=== PATIENT | male | born 1995 | race Caucasian/White ===

== ENCOUNTER → 2016-12-14 | Outpatient (CLI) | payer OTHER ==
[~2016-12-14] MED LIST: ASTHMA MEDS; CETI10TA84 PO; MULT-506 PO; MUSCLE RELAXER PO; TYLOTC500 PO; ZYRUNK
--- NOTE | 2016-12-14 08:54 | DIAGNOSTIC IMAGING REPORT ---
SPLENIC ULTRASOUND CLINICAL HISTORY: Nucleus is COMPARISON STUDY: No previous studies for comparison. FINDINGS: The spleen measures 12.9 cm in length. No splenic masses are visualized. There are no perisplenic fluid collections. IMPRESSION: 12.9 cm spleen. No splenic masses identified. Electronically signed by: Jimenez Thorpe M.D. 12/14/2016 8:53 AM Dictated Date/Time: 12/14/2016 8:52 AM
== END | disposition home or self-care (01) ==
LOC: C.ULTR 08:24
PROVIDERS: ATTEND Family Medicine
DX: B27.90 Infectious mononucleosis, unspecified without complication (principal)

== ENCOUNTER 2017-01-02 00:25 | Inpatient (IN) | payer OTHER ==
[~2017-01-02] VITALS: Ht 182.9 cm; Wt 83.3 kg
[~2017-01-02 00:25] MED LIST changes: -MULT-506 PO
[2017-01-02] MEDS ORDERED: SODIUM CHLORIDE 0.9% 1000ML 1,000 ML IV STA ×2 (00:39)
[2017-01-02] MEDS ORDERED: MoRPHine SULFATE 4 MG/ML 1 ML CARP\\VIAL IV STA (00:39)
[2017-01-02] MEDS ORDERED: ONDANSETRON INJ 2 MG/ML 2 ML VIAL IV STA (00:39)
[2017-01-02 01:03] LABS: BASO % 0.9 %; BASO ABS # 0.08 K/uL (0-0.2); COMPLETE YES; EOS % 4.1 %; HEMATOCRIT 45.9 % (42-52); IG% 0.2 %; LYMPH % 35.7 %; LYMPH ABS # 3.02 K/uL (1.2-3.4); MEAN CORPUSCULAR HEMOGLOBIN 31.8 pg (25-34); MEAN CORPUSCULAR HGB CONC 35.7 g/dl (32-36); MEAN PLATELET VOLUME 10.1 fL (7.4-10.4); MONO % 7.2 %; NEUT % 51.9 %; PLATELET COUNT 192 K/uL (130-400); RED BLOOD COUNT 5.16 M/uL (4.7-6.1); WHITE BLOOD COUNT 8.47 K/uL (4.8-10.8)
[2017-01-02 01:20] LABS: POTASSIUM 3.3 mmol/L (3.5-5.1)
[2017-01-02 01:25] LABS: URINE APPEARANCE CLEAR (CLEAR); URINE BILIRUBIN NEG (NEG); URINE COLOR YELLOW; URINE NITRITE NEG (NEG); URINE PH 5.5 (4.5-7.5); URINE SPECIFIC GRAVITY 1.013 (1.000-1.030); UROBILINOGEN NEG (NEG)
[2017-01-02 01:25] LABS: BUN/CREATININE RATIO 18.2 (10-20); CALCIUM 8.8 mg/dl (8.5-10.1); CREATININE 1.2 mg/dl (0.60-1.40)
[2017-01-02 01:30] LABS: MANUAL MICROSCOPIC REQUIRED? NO; REVIEW REQ? NO
[2017-01-02] MEDS ORDERED: OPTIRAY 320 IV PRN (01:45)
[2017-01-02] MEDS ORDERED: ACETAMINOPHEN 325 MG TAB PO PRN (02:30)
[2017-01-02] MEDS ORDERED: POLYETHYLENE (MIRALAX) 17 GM PACK PO PRN (02:30)
[2017-01-02] MEDS ORDERED: ZOLPIDEM TARTRATE 5 MG TAB PO PRN (02:30)
[2017-01-02] MEDS ORDERED: MAGNESIUM HYDROXIDE SUSP 30 ML UDC PO PRN (02:30)
[2017-01-02] MEDS ORDERED: ALUMINUM/MAGNESIUM/SIMETH (MAALOX MAX) 30 ML UDC PO PRN (02:30)
[2017-01-02] MEDS ORDERED: HYDROmorphone INJ 0.5 MG/0.5 ML SYR IV PRN (02:30)
[2017-01-02] MEDS ORDERED: ONDANSETRON INJ 2 MG/ML 2 ML VIAL IV PRN (02:30)
[2017-01-02] MEDS: POTASSIUM CHLR 10 MEQ / WTR 10 MEQ IV SCH ×2 (02:49→03:52)
[2017-01-02] MEDS ORDERED: MULT-506 PO (02:55)
--- NOTE | 2017-01-02 03:10 | History and Physical ---
History & Physical Date & Time of Service: Jan 02, 2017 at 02:50 Chief Complaint: Pain In Abdomen And Chest Primary Care Physician: Ar Bishop M.D. History of Present Illness Source: patient 21 y/o M no significant medical Hx. Pt had a few mixed drinks followed by a few beers and then developed acute upper abdominal pain, nausea and vomiting. He denies a fever or rigors. He states that he had some SOB at the onset of his pain. Initial labs are notable for a lipase > 6000. He has had near- complete resolution of symptoms with IVF, antiemetics and analgesia in the ER. Past Medical/Surgical History Seasonal allergies L shoulder surgery Family History Both parents alive and well - GM with breast CA Social History States he drinks on weekends - does not smoke cigarettes. Smoking Status: Never Smoker Allergies Coded Allergies: Dust (Verified Allergy, Unknown, RESPIRATORY SX, 01/02/17) Grass (Verified Allergy, Unknown, RESPIRATORY SX, 01/02/17) POLLEN (Verified Allergy, Unknown, RESPIRATORY SX, 01/02/17) Uncoded Allergies: TREE (Allergy, Unknown, RESPIRATORY SX, 06/22/16) Home Medications Scheduled Cetirizine (Zyrtec), 10 MG PO DAILY Multivitamin (Multivitamin), 1 TAB PO DAILY Review of Systems Constitutional: No fever, No chills, No sweats Eyes: No worsening of vision, No eye pain ENT: No hearing loss, No unusual epistaxis, No nasal symptoms Respiratory: No cough, No sputum, No wheezing Cardiovascular: No chest pain, No orthopnea, No PND Abdomen: + pain, + nausea, + vomiting Musculoskeletal: No joint pain, No muscle pain Genitourinary - Male: No hematuria, No dysuria Neurologic: No memory loss, No paralysis, No weakness Psychiatric: No depression symptoms Endocrine: No fatigue Hematologic / Lymphatic: No abnormal bleeding/bruising Integumentary: No rash Allergic / Immunologic: No environmental allergies Physical Exam Vital Signs Date Time Temp Pulse Resp B/P (MAP) Pulse Ox O2 Delivery O2 Flow Rate FiO2 01/02/17 01:52 101 20 114/66 98 Room Air 01/02/17 01:02 73 01/02/17 01:00 97 Room Air 01/02/17 00:30 36.7 76 16 145/83 97 Room Air General Appearance: WD/WN, no apparent distress, + mild distress Head: normocephalic Eyes: normal inspection ENT: normal ENT inspection, pharynx normal Neck: supple, no JVD Respiratory/Chest: chest non-tender, lungs clear, normal breath sounds Cardiovascular: regular rate, rhythm, no edema, no gallop, no JVD, no murmur, normal peripheral pulses Abdomen/GI: normal bowel sounds, non tender, soft Back: normal inspection, no CVA tenderness Extremities/Musculoskelatal: normal inspection, no calf tenderness, normal capillary refill, no pedal edema, normal range of motion 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, no motor/sensory deficits, alert, normal mood/affect, normal reflexes, oriented x 3 Skin: normal color, warm/dry, no rash Diagnostics Laboratory Results Results Past 24 Hours Test 01/02/17 00:49 01/02/17 00:55 Range/Units White Blood Count 8.47 4.8-10.8 K/uL Red Blood Count 5.16 4.7-6.1 M/uL Hemoglobin 16.4 14.0-18.0 g/dL Hematocrit 45.9 42-52 % Mean Corpuscular Volume 89.0 80-100 fL Mean Corpuscular Hemoglobin 31.8 25-34 pg Mean Corpuscular Hemoglobin Concent 35.7 32-36 g/dl Platelet Count 192 130-400 K/uL Mean Platelet Volume 10.1 7.4-10.4 fL Neutrophils (%) (Auto) 51.9 % Lymphocytes (%) (Auto) 35.7 % Monocytes (%) (Auto) 7.2 % Eosinophils (%) (Auto) 4.1 % Basophils (%) (Auto) 0.9 % Neutrophils # (Auto) 4.39 1.4-6.5 K/uL Lymphocytes # (Auto) 3.02 1.2-3.4 K/uL Monocytes # (Auto) 0.61 0.11-0.59 K/uL Eosinophils # (Auto) 0.35 0-0.5 K/uL Basophils # (Auto) 0.08 0-0.2 K/uL RDW Standard Deviation 39.8 36.4-46.3 fL RDW Coefficient of Variation 12.3 11.5-14.5 % Immature Granulocyte % (Auto) 0.2 % Immature Granulocyte # (Auto) 0.02 0.00-0.02 K/uL Sodium Level 141 136-145 mmol/L Potassium Level 3.3 3.5-5.1 mmol/L Chloride Level 105 98-107 mmol/L Carbon Dioxide Level 26 21-32 mmol/L Anion Gap 10.0 3-11 mmol/L Blood Urea Nitrogen 22 7-18 mg/dl Creatinine 1.20 0.60-1.40 mg/dl Est Creatinine Clear Calc Drug Dose 106.9 ml/min Estimated GFR () 99.6 Estimated GFR (Non- 85.9 BUN/Creatinine Ratio 18.2 10-20 Random Glucose 97 70-99 mg/dl Calcium Level 8.8 8.5-10.1 mg/dl Total Bilirubin 0.3 0.2-1 mg/dl Direct Bilirubin 0.2 0-0.2 mg/dl Aspartate Amino Transf (AST/SGOT) 40 15-37 U/L Alanine Aminotransferase (ALT/SGPT) 45 12-78 U/L Alkaline Phosphatase 71 45-117 U/L Total Creatine Kinase 312 39-308 U/L Total Protein 8.0 6.4-8.2 gm/dl Albumin 4.6 3.4-5.0 gm/dl Lipase 6430 73-393 U/L Ethyl Alcohol mg/dL 116.0 0-3 mg/dl Urine Color YELLOW Urine Appearance CLEAR CLEAR Urine pH 5.5 4.5-7.5 Urine Specific [place] 1.013 1.000-1.030 Urine Protein NEG NEG Urine Glucose (UA) NEG NEG Urine Ketones NEG NEG Urine Occult Blood NEG NEG Urine Nitrite NEG NEG Urine Bilirubin NEG NEG Urine Urobilinogen NEG NEG Urine Leukocyte Esterase NEG NEG Diagnostic Radiology CT abdomen - gallbladder sludge - CBD at upper limit of normal - no evidence of pancreatitis Impression Assessment and Plan 21 y/o M no significant medical Hx. Pt had a few mixed drinks followed by a few beers and then developed acute upper abdominal pain, nausea and vomiting. He denies a fever or rigors. He states that he had some SOB at the onset of his pain. Initial labs are notable for a lipase > 6000. He has had near- complete resolution of symptoms with IVF, antiemetics and analgesia in the ER. There are no acute abnormalities noted on CT. The pt is admitted for acute pancreatitis - IVF, analgesia, antiemetics as needed - NPO pending AM evaluation. As there are no significant fiindings on CT and the pts symptoms have resolved, it may be that he had passed a stone and that the pancreatitis is not related to ETOH consumption. Would consider AM discharge if there is no symptom recurrence. Full code - Lovenox prophylaxis Total time for this admit including review of labs, meds, records - discussion with pt and ER attending - 32 min Level of Care Med/Surg Resuscitation Status FULL RESUSCITATION VTE Prophylaxis VTE Risk Assessment Done? Y/N: Yes Risk Level: Low Given or contraindicated: Enoxaparin (Lovenox)SQ
[2017-01-02] MEDS ORDERED: D5NSS + 20MEQ KCL 1,000 ML IV SCH (03:30)
--- NOTE | 2017-01-02 03:36 | EMERGENCY ROOM VISIT NOTE ---
History First contact with patient: 00:34 Chief Complaint: ABDOMINAL PAIN Stated Complaint: PAIN IN ABDOMEN AND CHEST Nursing Triage Summary: pt c/o epigastric pain that started approx 15 minutes prior to arrival while at the bar. pt admits to having a few drinks. pt reports belching and a small amount of emesis earlier. denies nausea at this time. pt reports pain is easing. History of Present Illness The patient is a 21 year old male who presents to the Emergency Room with complaints of epigastric pain that was sudden in onset for the past half hour. no history of similar symptoms in the past. Patient states had 6 beers tonight. This is new for him. He does not normally drink. Patient with some nausea without vomiting or diarrhea. Patient denies chest pain, dyspnea, fever , chills, cough, congestion, urinary symptoms, cold symptoms. Review of Systems See HPI for pertinent positives & negatives. A total of 10 systems reviewed and were otherwise negative. Past Medical/Surgical History Medical Problems: (1) Pancreatitis Orthopedic injuries Social History Smoking Status: Never Smoker Smokeless Tobacco Use: No Alcohol Use: occasionally Drug Use: none Marital Status: in relationship Occupation Status: [employer] student Current/Historical Medications Scheduled Cetirizine (Zyrtec), 10 MG PO DAILY Multivitamin (Multivitamin), 1 TAB PO DAILY Allergies Coded Allergies: Dust (Verified Allergy, Unknown, RESPIRATORY SX, 01/02/17) Grass (Verified Allergy, Unknown, RESPIRATORY SX, 01/02/17) POLLEN (Verified Allergy, Unknown, RESPIRATORY SX, 01/02/17) Uncoded Allergies: TREE (Allergy, Unknown, RESPIRATORY SX, 06/22/16) Physical Exam Vital Signs Date Time Temp Pulse Resp B/P (MAP) Pulse Ox O2 Delivery O2 Flow Rate FiO2 01/02/17 01:52 101 20 114/66 98 Room Air 01/02/17 01:02 73 01/02/17 01:00 97 Room Air 01/02/17 00:30 36.7 76 16 145/83 97 Room Air Physical Exam VITALS: Vitals are noted on the nurse's note and reviewed by myself. Vital signs stable. GENERAL: Pleasant male who appears in pain, nondiaphoretic, well-developed well- nourished. SKIN: The skin was without rashes, erythema, edema, or bruising. There is no tenting of the skin. Capillary reflex less than 2 seconds. HEAD: Normocephalic atraumatic. EARS: External auditory canals clear, tympanic membranes pearly aguilar without erythema or effusion bilaterally. EYES: Pupils equal round and reactive to light and accommodation. Conjunctivae without injection, sclerae without icterus. Extraocular movements intact. NOSE: Patent, turbinates without inflammation or discharge. MOUTH: Mucous membranes moist. Pharynx without erythema or exudate. Uvula midline. Airway patent. Tongue does not deviate. NECK: Supple without nuchal rigidity. No lymphadenopathy. No thyromegaly. Cervical spine is nontender. No JVD. HEART: Regular rate and rhythm without murmurs gallops or rubs. LUNGS: Clear to auscultation bilaterally without wheezes, rales or rhonchi. No dullness to percussion. No retractions or accessory muscle use. ABDOMEN: Positive bowel sounds x 4. Normal tympanic percussion. Soft, tender to palpation epigastric region, no CVA tenderness, without masses or organomegaly. Peña sign negative. No guarding or rebound tenderness. MUSCULOSKELETAL: No muscle atrophy, erythema, or edema noted. NEURO: Patient was alert and oriented to person place and time. Normal sensation to light and sharp touch. No focal neurological deficits. Medical Decision & Procedures Laboratory Results 01/02/17 00:49 Red Blood Count 5.16, Mean Corpuscular Volume 89.0, Mean Corpuscular Hemoglobin 31.8, Mean Corpuscular Hemoglobin Concent 35.7, Mean Platelet Volume 10.1, Neutrophils (%) (Auto) 51.9, Lymphocytes (%) (Auto) 35.7, Monocytes (%) (Auto) 7.2, Eosinophils (%) (Auto) 4.1, Basophils (%) (Auto) 0.9, Neutrophils # (Auto) 4.39, Lymphocytes # (Auto) 3.02, Monocytes # (Auto) 0.61, Eosinophils # (Auto) 0.35, Basophils # (Auto) 0.08 01/02/17 00:49 Test 01/02/17 00:49 01/02/17 00:55 White Blood Count 8.47 K/uL (4.8-10.8) Red Blood Count 5.16 M/uL (4.7-6.1) Hemoglobin 16.4 g/dL (14.0-18.0) Hematocrit 45.9 % (42-52) Mean Corpuscular Volume 89.0 fL (80-100) Mean Corpuscular Hemoglobin 31.8 pg (25-34) Mean Corpuscular Hemoglobin Concent 35.7 g/dl (32-36) Platelet Count 192 K/uL (130-400) Mean Platelet Volume 10.1 fL (7.4-10.4) Neutrophils (%) (Auto) 51.9 % Lymphocytes (%) (Auto) 35.7 % Monocytes (%) (Auto) 7.2 % Eosinophils (%) (Auto) 4.1 % Basophils (%) (Auto) 0.9 % Neutrophils # (Auto) 4.39 K/uL (1.4-6.5) Lymphocytes # (Auto) 3.02 K/uL (1.2-3.4) Monocytes # (Auto) 0.61 K/uL (0.11-0.59) Eosinophils # (Auto) 0.35 K/uL (0-0.5) Basophils # (Auto) 0.08 K/uL (0-0.2) RDW Standard Deviation 39.8 fL (36.4-46.3) RDW Coefficient of Variation 12.3 % (11.5-14.5) Immature Granulocyte % (Auto) 0.2 % Immature Granulocyte # (Auto) 0.02 K/uL (0.00-0.02) Anion Gap 10.0 mmol/L (3-11) Est Creatinine Clear Calc Drug Dose 106.9 ml/min Estimated GFR () 99.6 Estimated GFR (Non- 85.9 BUN/Creatinine Ratio 18.2 (10-20) Calcium Level 8.8 mg/dl (8.5-10.1) Total Bilirubin 0.3 mg/dl (0.2-1) Direct Bilirubin 0.2 mg/dl (0-0.2) Aspartate Amino Transf (AST/SGOT) 40 U/L (15-37) Alanine Aminotransferase (ALT/SGPT) 45 U/L (12-78) Alkaline Phosphatase 71 U/L (45-117) Total Creatine Kinase 312 U/L (39-308) Total Protein 8.0 gm/dl (6.4-8.2) Albumin 4.6 gm/dl (3.4-5.0) Lipase 6430 U/L (73-393) Ethyl Alcohol mg/dL 116.0 mg/dl (0-3) Urine Color YELLOW Urine Appearance CLEAR (CLEAR) Urine pH 5.5 (4.5-7.5) Urine Specific [place] 1.013 (1.000-1.030) Urine Protein NEG (NEG) Urine Glucose (UA) NEG (NEG) Urine Ketones NEG (NEG) Urine Occult Blood NEG (NEG) Urine Nitrite NEG (NEG) Urine Bilirubin NEG (NEG) Urine Urobilinogen NEG (NEG) Urine Leukocyte Esterase NEG (NEG) Medications Administered Medications (Trade) Dose Ordered Sig/Maggie Route Start Time Stop Time Status Last Admin Dose Admin Sodium Chloride 1,000 ml @ 999 mls/hr Q1H1M STAT IV 01/02/17 00:39 01/02/17 01:39 DC 01/02/17 00:51 999 MLS/HR Sodium Chloride 1,000 ml @ 125 mls/hr Q8H STAT IV 01/02/17 00:39 01/02/17 03:17 DC 01/02/17 00:51 125 MLS/HR ED Course Prior records/ancillary studies reviewed. Triage Nursing notes reviewed. Additional history obtained from friends. The patient's history was concerning for abdominal pain. Differential diagnosis: Etiologies such as appendicitis, diverticulitis, PUD, biliary pathology, UTI, pancreatitis, obstruction, mesenteric ischemia, aortic pathology, infections, inflammatory bowel disease, renal colic, as well as others were entertained. Physical examination findings: As above. ER treatment provided: Morphine, Zofran, IV fluids On reassessment the patient felt better. Diagnostics interpreted by me: The labs revealed elevated lipase. Stable H&H Imaging studies: CT was negative for acute findings per radiology Consultation: A consultation was placed with the Dr Foster. The case was discussed and diagnostics were reviewed. The patient was evaluated in the ER for further treatment. Exam and history seem concerning for pancreatitis. Patient is placed nothing by mouth and hydrated as above. He will be evaluated by medicine. By the evaluation outlined above emergent etiologies such as appendicitis, diverticulitis, PUD, biliary pathology, UTI, obstruction, mesenteric ischemia, aortic pathology, inflammatory bowel disease, renal colic, as well as others were deemed relatively unlikely. I spoke to the patient's parents and all questions are answered. This is per his request. The pt informed about the findings as listed above. All questions were answered and pleased with the treatment. Case reviewed with my attending. Medical Decision As above Impression Primary Impression: Pancreatitis Departure Information Dispostion Being Evaluated By Hospitalist Condition GOOD Referrals No Doctor, Assigned (PCP) Patient Instructions [facility] Problem Qualifiers Primary Impression: Pancreatitis Chronicity: acute Pancreatitis type: unspecified pancreatitis type Acute pancreatitis complication: unspecified Qualified Codes: K85.90 - Acute pancreatitis without necrosis or infection, unspecified
[2017-01-02] MEDS ORDERED: MAGNESIUM SULFATE 1GM / D5W 1 GM in PREMIXED IN D5W 100 ML IV ONE (04:00)
[2017-01-02 04:42] VITALS: BP 125/58; PULSE 84; TEMP 37; O2SAT 95; Ht 182.9 cm; Wt 83.3 kg
--- NOTE | 2017-01-02 06:00 | DIAGNOSTIC IMAGING REPORT ---
Right quadrant ultrasound GALLBLADDER-ABD LIMITED CLINICAL HISTORY: rug pain, ? GB pain TECHNIQUE: Ultrasound COMPARISON STUDY: None FINDINGS: Trace amount of gallbladder sludge. No shadowing gallstones. Common bile duct 6 mm. Liver is uniform. Pancreas and right kidney are unremarkable. IMPRESSION: Gallbladder sludge. Electronically signed by: Beto Pyle M.D. 01/02/2017 5:58 AM Dictated Date/Time: 01/02/2017 5:57 AM
[2017-01-02 06:07] LABS: INR 1.1 (0.9-1.1); PROTHROMBIN TIME (PATIENT) 11.3 SECONDS (9.0-12.0)
--- NOTE | 2017-01-02 06:08 | DIAGNOSTIC IMAGING REPORT ---
ABDOMEN AND PELVIS CT WITH IV CONTRAST CT DOSE: 276.22 mGy.cm HISTORY: Elevated lipase abd pain, lipase 6500 TECHNIQUE: Multiaxial CT images of the abdomen and pelvis were performed following the use of intravenous contrast. COMPARISON STUDY: None. FINDINGS: The lung bases are clear. The liver, spleen, gallbladder, pancreas, kidneys, and adrenal glands are within normal limits. No bowel wall thickening or obstruction. The pelvic organs are unremarkable. No suspicious lytic or blastic osseous lesions. IMPRESSION: No significant abnormality identified within the abdomen or pelvis. Electronically signed by: Beto Pyle M.D. 01/02/2017 6:06 AM Dictated Date/Time: 01/02/2017 6:05 AM
--- NOTE | 2017-01-02 07:15 | Family Medicine Progress Note ---
Progress Note Date of Service Jan 02, 2017. Subjective Pt evaluation today including: conversation w/ patient Pt was seen and examined at bedside. Pt was admitted earlier this morning at approximately 3am and made NPO. Pt states that his abdominal pain has subsided. Pt did not receive any pain medications since being admitted to the floor. Pt is resting comfortably, good historian. Pt denies chronic alcohol use, denies gallbladder/colicky type symptoms with food, pt was recently worked up for mononucleosis 3 weeks ago, says that his energy has come back since feeling tired 3 weeks ago. Pt has not had HIV testing, has not felt sick recently. Pt denies any abdominal trauma. Pt confirms important elements of the H&P - no more than 6 drinks. Pt ate a good meal the night before. Pt has never had this pain before. Of note was that the pt stated that his pain was on the right side of the abdomen and radiated to the back. Pt described the pain as a "fullness", not a colicky type pain. Plan of care was described to the patient, NPO status, GI consult, possible imaging and further blood work and all questions were answered. Constitutional: No fever, No chills, No sweats, No weight loss Respiratory: No cough, No sputum, No wheezing Cardiovascular: No chest pain, No orthopnea, No edema Abdomen: + vomiting (one episode of minimal vomiting yesterday, nothing since, does not feel need to vomit now), No pain, No nausea, No diarrhea Musculoskeletal: No joint pain, No muscle pain, No swelling Objective Physical Exam General Appearance: WD/WN, no apparent distress Eyes: EOMI ENT: hearing grossly normal Respiratory/Chest: chest non-tender, lungs clear, normal breath sounds, no respiratory distress, no accessory muscle use Cardiovascular: regular rate, rhythm, no edema, no gallop, no JVD, no murmur Abdomen: normal bowel sounds, non tender, soft, no organomegaly, no pulsatile mass Extremities: normal range of motion, non-tender, normal inspection, no pedal edema, no calf tenderness Neurologic/Psychiatric: alert, normal mood/affect, oriented x 3 Laboratory Results Right quadrant ultrasound GALLBLADDER-ABD LIMITED CLINICAL HISTORY: rug pain, ? GB pain TECHNIQUE: Ultrasound COMPARISON STUDY: None FINDINGS: Trace amount of gallbladder sludge. No shadowing gallstones. Common bile duct 6 mm. Liver is uniform. Pancreas and right kidney are unremarkable. IMPRESSION: Gallbladder sludge. ABDOMEN AND PELVIS CT WITH IV CONTRAST CT DOSE: 276.22 mGy.cm HISTORY: Elevated lipase abd pain, lipase 6500 TECHNIQUE: Multiaxial CT images of the abdomen and pelvis were performed following the use of intravenous contrast. COMPARISON STUDY: None. FINDINGS: The lung bases are clear. The liver, spleen, gallbladder, pancreas, kidneys, and adrenal glands are within normal limits. No bowel wall thickening or obstruction. The pelvic organs are unremarkable. No suspicious lytic or blastic osseous lesions. IMPRESSION: No significant abnormality identified within the abdomen or pelvis. MRCP MRCP CLINICAL HISTORY: pancreatitis abnormal ultrasound TECHNIQUE: Multi axial MRI acquisition COMPARISON STUDY: CT examination and right upper quadrant ultrasound dated 01/02/2017 FINDINGS: Clavicle trace gallbladder sludge at the gallbladder fundus. No definite confirmed filling defects. Liver is uniform in signal character. Biliary ductal system is unremarkable based on the MRCP component of the study. No evidence for choledocholithiasis. Pancreas is uniform. No significant peripancreatic infiltrative change. Kidneys are uniform. No significant upper abdominal adenopathy. IMPRESSION: 1. Essentially negative MRCP. 2. No filling defects within the biliary or pancreatic ductal systems. 3. Potential trace sludge within the gallbladder lumen versus artifact. 4. Unremarkable signal characteristics of liver spleen and pancreas. Assessment and Plan 21M with no significant PMHx p/w acute onset abdominal pain after having 5-6 alcohol drinks the evening prior. Labs were remarkable for a lipase of >6400. RUQ US notable for biliary sludge. CT Abdo and Pelvis were unremarkable. Pt was admitted for acute pancreatitis and made NPO with aggressive fluid administration (LRs at 250mls/hr). GI was consulted. MRCP was unremarkable. Pt's abdominal symptoms resolved without pain medication. Pt will be progress to a clear liquid diet and observed overnight. Hopeful AM discharge. Acute Pancreatitis - Clinical history, PE and labs (Lipase >6400) concerning for acute pancreatitis. - Given the history, acute alcohol intoxication is most likely the etiology. US GB is concerning for sludge and a gallstone cannot be completely ruled out. Sludge is a known cause of acute pancreatitis. - MRCP negative. - Clear liquid diet and advance as tolerated. - Pt may benefit from cholecystectomy to prevent recurrence of symptoms in the future - this was discussed with the patient by Dr. Parry. - Pt advised to abstain from alcohol to prevent future recurrences. - Other etiologies of acute pancreatitis were considered; salicylates, hyperlipidemia, viruses (mumps, coxsackie, hepatitis B, CMV, varicella, HSV, HIV ), blunt trauma). These are less likely. Consider outpatient GP workup including HIV testing. DVT Proph - Lovenox SQ (pt deferred) - SCDs Dispo: Med Surg, Clear liquid diet progress as tolerated, Home tomorrow mostly likely Code: Full Resident Physician Supervision Note: I interviewed and examined the patient. Discussed with the resident physician and agree with findings and plan as documented in the note. Any exceptions or clarifications are listed here: Please see discharge summary Documented By: Haong Parry Resident Involvement: Resident Care Provided Care Provided: Adult Hospital Medicine
[2017-01-02] MEDS ORDERED: ENOXAPARIN 40 MG/0.4 ML SYR SQ SCH (08:00)
[2017-01-02 08:01] VITALS: BP 124/61; PULSE 88; TEMP 36.9; O2SAT 97
[2017-01-02 08:38] LABS: HEMATOCRIT 41.7 % (42-52); MEAN CELL VOLUME 88.3 fL (80-100); MEAN CORPUSCULAR HGB CONC 36.2 g/dl (32-36); MEAN PLATELET VOLUME 10.3 fL (7.4-10.4); PLATELET COUNT 173 K/uL (130-400); RED BLOOD COUNT 4.72 M/uL (4.7-6.1); WHITE BLOOD COUNT 7.41 K/uL (4.8-10.8)
[2017-01-02 09:01] LABS: BUN/CREATININE RATIO 16.6 (10-20); CALCIUM 8.4 mg/dl (8.5-10.1); CHOLESTEROL/HDL RATIO 3.1; POTASSIUM 4.4 mmol/L (3.5-5.1)
[2017-01-02] MEDS ORDERED: LACTATED RINGER S IV SCH (10:00)
[2017-01-02] MEDS ORDERED: POTASSIUM CHLORIDE IV SCH (10:00)
[2017-01-02] MEDS: LACTATED RINGER'S 1000ML 1,000 ML IV SCH ×2 (10:45→15:04)
[2017-01-02] MEDS ORDERED: PNEUMOCOCCAL ADMINISTRATION CHARGE ONE (14:00)
[2017-01-02] MEDS ORDERED: PNEUMOCOCCAL POLYSACCHARIDES 25 MCG/0.5 ML VIAL/SYR IM. ONE (14:00)
--- NOTE | 2017-01-02 15:02 | GASTROINTESTINAL CONSULTATION ---
DATE OF CONSULTATION: 01/02/2017 HISTORY OF PRESENT ILLNESS: This is a 21-year-old gentleman with recent EBV disease who presented to the Emergency Department earlier this morning with epigastric pain that radiated to his back. The patient had a few mixed drinks followed by a few beers and then developed acute upper abdominal pain associated with some nausea and vomiting. He almost felt that it was like an air bubble sitting in his epigastric area. He denies any fevers or rigors. He originally was going to go home, but then he sat down outside and his girlfriend came out and said instead of going home lets go to the Emergency Room. Upon arrival in the Emergency Room, his initial labs were noted to have a lipase greater than 6000. He developed pain again in the Emergency Room that resolved on its own after about 5 minutes. He had near complete resolution of his symptoms with some IV fluids and antiemetics. The pain had already resolved, but he did receive some analgesics medicine as well. Since being upstairs in his room, he continues to feel better. He is actually hungry now. PAST MEDICAL HISTORY: Some seasonal allergies and EBV infection. PAST SURGICAL HISTORY: Left shoulder surgery and sinus surgery. FAMILY HISTORY: No history of any pancreatic or gallbladder issues. SOCIAL HISTORY: He drinks on weekends occasionally. He does not smoke. He attends [employer] and is going to be a senior. 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 He has no IV drug use. ALLERGIES: DUST, GRASS, AND POLLEN. MEDICATIONS: Multivitamin and Cetirizine 10 mg a day. REVIEW OF SYSTEMS: A 10-point review of systems was negative except for as per the HPI. PHYSICAL EXAMINATION: VITAL SIGNS: The patient has a temperature of 37.0, pulse of 84, respiratory rate of 14, blood pressure 125/58, pulse ox 95% on room air. HEENT: Benign with a clear oropharynx. Anicteric sclerae. LUNGS: Clear to auscultation bilaterally. HEART: Regular rate and rhythm. ABDOMEN: Soft and nontender with no Peña sign. He has no rebound or guarding. EXTREMITIES: He has no lower extremity edema. NEUROLOGIC: Cranial nerves II through XII are grossly intact. He is well developed and well-nourished. LABORATORY DATA: On review of his clinical data blood work from today had a white count of 7.4, hemoglobin 15.1, platelets 173. INR 1.1. Sodium 142, potassium 4.4, BUN 17, creatinine 1.0, triglycerides 83, lipase 6430, alkaline phosphatase 71, CK 312, albumin 4.6, AST 40, ALT 45, total bilirubin 0.3, calcium 8.4. Alcohol level 116. IMAGING: Right upper quadrant ultrasound demonstrated a trace amount of gallbladder sludge but no shadowing gallstones. The CBD measures [address] scan showed that the lungs bases were clear. Liver, spleen, gallbladder, pancreas, kidneys and adrenal glands were all normal. ASSESSMENT AND PLAN: In summary, this is a 21-year-old gentleman with new onset epigastric pain that started after drinking some alcohol last evening. He states his pain is now completely resolved. I discussed with the patient the major causes of pancreatitis and in his case it is either related to his gallbladder or the alcohol. I would like to obtain an MRCP to confirm that there is no gallstones. As an outpatient it should be decided whether or not he should have his gallbladder removed as there was sludge in the gallbladder. At this point, it does not appear he needs an emergent ERCP to be done. He also needs to avoid alcohol given this episode of pancreatitis. He should continue with the lactated Ringer's's at 250 mL per hour. Pending the results of the MRCP and if his pain continues to be well controlled without pain medicine, his diet this evening can be advanced to a clear liquid diet. Dr. Tramaine Seth will be covering for the patient starting this evening at 5 p.m. Please call with any questions and we will see him in the morning. SHANNON
[2017-01-02 16:20] VITALS: BP 121/72; PULSE 58; TEMP 36.7; O2SAT 98
--- NOTE | 2017-01-02 17:19 | DIAGNOSTIC IMAGING REPORT ---
MRCP MRCP CLINICAL HISTORY: pancreatitis abnormal ultrasound TECHNIQUE: Multi axial MRI acquisition COMPARISON STUDY: CT examination and right upper quadrant ultrasound dated 01/02/2017 FINDINGS: Clavicle trace gallbladder sludge at the gallbladder fundus. No definite confirmed filling defects. Liver is uniform in signal character. Biliary ductal system is unremarkable based on the MRCP component of the study. No evidence for choledocholithiasis. Pancreas is uniform. No significant peripancreatic infiltrative change. Kidneys are uniform. No significant upper abdominal adenopathy. IMPRESSION: 1. Essentially negative MRCP. 2. No filling defects within the biliary or pancreatic ductal systems. 3. Potential trace sludge within the gallbladder lumen versus artifact. 4. Unremarkable signal characteristics of liver spleen and pancreas. Electronically signed by: Beto Pyle M.D. 01/02/2017 5:17 PM Dictated Date/Time: 01/02/2017 5:16 PM
--- NOTE | 2017-01-02 19:23 | Discharge Instructions ---
Discharge Instructions Date of Service Jan 02, 2017. Admission Reason for Admission: Pancreatitis Discharge Discharge Diagnosis / Problem: pancreatitis Discharge Goals Goal(s): Decrease discomfort, Diagnostic testing, Therapeutic intervention Activity Recommendations Activity Limitations: as noted below Lifting Limitations: gradually increase as tolerated Exercise/Sports Limitations: until after follow-up appointment (with sports medicine/team physician) May Resume Sexual Activity: when tolerated Shower/Bathe: no limitations Driving or Machine Use: no limitations . Instructions / Follow-Up Instructions / Follow-Up #1 blood work to be obtained at [facility] tomorrow. #2 follow-up with Dr. Ar Ochoa, [facility] prior to return to practice. Current Hospital Diet Patient's current hospital diet: Clear Liquid Diet Discharge Diet Recommended Diet: Low Fat Diet Pending Studies Studies pending at discharge: no Laboratory Results Lipid Panel Test 01/02/17 05:14 Range/Units Triglycerides Level 83 0-150 mg/dl Cholesterol Level 150 0-200 mg/dl HDL Cholesterol 49 mg/dl Cholesterol/HDL Ratio 3.1 LDL Cholesterol, Calculated 84 mg/dl Medical Emergencies . Who to Call and When: Medical Emergencies: If at any time you feel your situation is an emergency, please call 911 immediately. . Non-Emergent Contact Non-Emergency issues call your: Primary Care Provider Call Non-Emergent contact if: you have a fever, your pain is not controlled, your pain is worsening, your pain is unusual for you, your pain is concerning you . . "Provider Documentation" section prepared by Hoang Parry. . VTE Core Measure Inpt VTE Proph given/why not?: Enoxaparin (Lovenox)SQ
--- NOTE | 2017-01-02 19:36 | Discharge Summary ---
Discharge Summary Date of Service Jan 02, 2017. Discharge Summary Admission Date: Jan 02, 2017 at 02:29 Discharge Date: Jan 02, 2017 Discharge Disposition: Home Principal Diagnosis: pancreatitis Problems/Secondary Diagnoses: Abdominal pain Procedures: None Consultations: Gastroenterology Medication Reconciliation Continued Medications: Cetirizine (Zyrtec) 10 Mg Tab 10 MG PO DAILY Multivitamin (Multivitamin) Tab 1 TAB PO DAILY, TAB Hospital Course STUDIES Right quadrant ultrasound GALLBLADDER-ABD LIMITED FINDINGS: Trace amount of gallbladder sludge. No shadowing gallstones. Common bile duct 6 mm. Liver is uniform. Pancreas and right kidney are unremarkable. IMPRESSION: Gallbladder sludge. ABDOMEN AND PELVIS CT WITH IV CONTRAST IMPRESSION: No significant abnormality identified within the abdomen or pelvis. MRCP MRCP IMPRESSION: 1. Essentially negative MRCP. 2. No filling defects within the biliary or pancreatic ductal systems. 3. Potential trace sludge within the gallbladder lumen versus artifact. 4. Unremarkable signal characteristics of liver spleen and pancreas. 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 The patient was in his usual state of health until just before midnight when he noted the onset of the discomfort. The patient had drank a couple of mixed alcoholic drinks and then some beer prior to the onset of the discomfort. The patient drove to the emergency department, and he states that the pain markedly improved with a time to cut him back to the emergency department bed. He had another short episode of pain lasting about 5 minutes. He was given some anti-emetics and IV fluids in the emergency department; get some pain medicines but the pain had resolved prior to administration of these medicines. A CT scan of the abdomen and pelvis is unremarkable. An ultrasound just with some sludge in the gallbladder but otherwise unremarkable. A lipase was elevated greater than 6000 the patient was subsequently admitted to the general medical floor. Of note the patient was recently diagnosed with Andrew-Fernandez virus infection. He states that he was fatigued; he denied any abdominal pain or similar symptoms prior to the night of admission. HOSPITAL COURSE The patient was admitted to the general medical floor. Lactated Ringer's was started at 250 ML's per hour. Gastroenterology was consult. The patient underwent an MRCP. The patient did not have any recurrence of pain. Following the MRCP he desired food and as such was given a clear liquid diet. The patient tolerated a clear liquid diet without any difficulty; upon reexamination at 7:30 in the evening the patient was without any tenderness upon palpation of the abdominal area. The patient's mother, who lives out of the area, around the hospital this evening. I was able to review the laboratory and imaging findings with her in the presence of the patient. The initial plan was to keep the patient overnight, but the patient desired discharge. Given the normal MRCP and his lack of pain since admission. This seems reasonable. I went over a low-fat gradually increase diet the next several days. I stressed avoidance of all alcohol. The patient will return to our outpatient office for a CMP, CBC, amylase, and lipase tomorrow. These results will be copied to the [facility] sports medicine office as well. I advised the patient no work school or physical activity tomorrow. He may resume work or school the following day should he feel fine. He went to see sports medicine to be clear to return to physical activity. Total Time Spent: Greater than 30 minutes This includes examination of the patient, discharge planning, medication reconciliation, and communication with other providers. Discharge Instructions Please refer to the electronic Patient Visit Report (Discharge Instructions) for additional information. Follow-Up #1 CMP, CBC, amylase, and lipase tomorrow #2 follow up with sports medicine to be cleared to return to practice.
[2017-01-02 19:44] VITALS: BP 121/72; PULSE 58; TEMP 36.7; O2SAT 98
== END 2017-01-02 20:05 | disposition home or self-care (01) | DRG 440 ==
LOC: C.EDB 00:27 → C.4E 02:29 → ENRESERV 02:46
PROVIDERS: ADMIT Internal Medicine; ATTEND Family Medicine
DX: K85.20 Alcohol induced acute pancreatitis without necrosis or infection (principal); K83.9 Disease of biliary tract, unspecified; B27.00 Gammaherpesviral mononucleosis without complication; J30.2 Other seasonal allergic rhinitis; Z79.899 Other long term (current) drug therapy